=== PATIENT | female | born 1960 | race Asian ===

== ENCOUNTER 2022-01-10 17:04 | Emergency (ER) | payer BC ==
[~2022-01-10] VITALS: Ht 157.5 cm; Wt 46.4 kg
--- NOTE | 2022-01-10 18:07 | PHYS DOC ---
Past History Past Surgical History: No Surgical History General Adult EDM: Chief Complaint: MECHANICAL FALL HPI: HPI: Patient is a 51 year old Urdu female who presents with above hx trip fall FOOSH injury Lt wrist.. Is Urdu and lives in [place] visiting her son who is in [facility]. Pt. is Rt hand dominate. Does have some numbness along lateral side of Lt little finger. Distal neurovascular intact. Pt. denies other injury. Review of Systems: Review of Systems: Constitutional: Denies fever or chills Eyes: Denies change in visual acuity HENT: Denies nasal congestion or sore throat Respiratory: Denies cough or shortness of breath Cardiovascular: Denies chest pain or edema GI: Denies abdominal pain, nausea, vomiting, bloody stools or diarrhea : Denies dysuria Musculoskeletal: Complains of left wrist fracture Integument: Denies rash Neurologic: Denies headache, focal weakness or sensory changes Endocrine: Denies polyuria or polydipsia Lymphatic: Denies swollen glands Psychiatric: Denies depression or anxiety Family History: Family History: Noncontributory to presentation Current Medications: Current Meds: See nursing for home meds Allergies: Allergies: Allergies Coded Allergies Type Severity Reaction Last Updated Verified No Known Drug Allergies 01/10/22 No Physical Exam: PE: Constitutional: Well developed, well nourished, [address] [address] IMAGING REPORT Signed PATIENT: YAMILETH LOMELI EACCOUNT: [id number] : 11/23/1981 LOCATION: ER AGE: 40 SEX: M EXAM STATUS: DEP ER ORD. PHYSICIAN: ERICA MALDONADO MD REASON: post chest tube PROCEDURE: CHEST AP ONLY EXAMINATION: Chest radiograph. VIEWS: 1 COMPARISON: Same day radiograph and CT chest INDICATION:40 years, Male, Post chest tube placement. FINDINGS/ IMPRESSION: Placement of left pleural drain catheter with no definite residual pneumothorax. Improved aeration of the left lung. Subsegmental atelectatic changes in the left lung base. No other significant changes since earlier exam. Electronically signed by: Reggie Melchor MD (01/07/2022 2:01 AM) [facility] [address] [id number] IMAGING REPORT Signed PATIENT: YAMILETH LOMELI ACCOUNT: [id number] : 11/23/1981 LOCATION: ER AGE: 40 SEX: M EXAM STATUS: DEP ER ORD. PHYSICIAN: ERICA MALDONADO MD REASON: post chest tube PROCEDURE: CHEST AP ONLY EXAMINATION: Chest radiograph. VIEWS: 1 COMPARISON: Same day radiograph and CT chest INDICATION:40 years, Male, Post chest tube placement. FINDINGS/ IMPRESSION: Placement of left pleural drain catheter with no definite residual pneumothorax. Improved aeration of the left lung. Subsegmental atelectatic changes in the left lung base. No other significant changes since earlier exam. Electronically signed by: Reggie Melchor MD (01/07/2022 2:01 AM) [facility] DICTATED AND SIGNED BY: REGGIE MELCHOR MD DATE: 01/07/22199 CC: ERICA MALDONADO MD; PCP,NO ~MTH0 0 DICTATED AND SIGNED BY: REGGIE MELCHOR MD DATE: 01/07/22199 CC: ERICA MALDONADO MD; PCP,NO ~MTH0 0 or. [] Cardiovascular:Heart rate regular rhythm, no murmur [] Lungs & Thorax: Bilateral breath sounds clear to auscultation [] Abdomen: Bowel sounds normal, soft, no tenderness, no masses, no pulsatile masses. [] Skin: Warm, dry, no erythema, no rash. [] Back: No tenderness, no CVA tenderness. [] Extremities: No tenderness, no cyanosis, no clubbing, ROM intact, no edema. [Except findings in left wrist as per HPI Neurologic: Alert and oriented X 3, normal motor function, normal sensory function, no focal deficits noted. [] Psychologic: Affect normal, judgement normal, mood normal. [] Current Patient Data: Vital Signs: Vital Signs Date Time Temp Pulse Resp B/P (MAP) Pulse Ox O2 Delivery O2 Flow Rate FiO2 01/10/22 17:53 98.3 62 16 99 Room Air EKG: EKG: [] Radiology/Procedures: Radiology/Procedures: [][address] [address] IMAGING REPORT Signed PATIENT: ALESSIA BUSH ACCOUNT: [id number] : 1960 LOCATION: ER AGE: 61 SEX: F EXAM STATUS: REG ER ORD. PHYSICIAN: ERICA MALDONADO MD REASON: fall PROCEDURE: WRIST 3V LEFT XR LT WRIST 3VIEWS History: Reason: fall / Spl. Instructions: / History: . Pain Technique: 3 views left wrist Comparison: None. Findings: Acute comminuted intra-articular impacted left distal radial fracture with dorsal evaluation. Acute mildly displaced ulnar styloid fracture. Mild first carpal metacarpal triscaphe DJD. Impression: 1. Acute comminuted impacted intra-articular left distal radial fracture. 2. Acute ulnar styloid mildly displaced fracture. Electronically signed by: Shaka Smith DO (01/10/2022 7:06 PM) [facility] DICTATED AND SIGNED BY: SHAKA SMITH DO DATE: 01/10/221904 CC: ERICA MALDONADO MD; NON,STAFF ~MTH0 0 Heart Score: C/O Chest Pain: N/A Risk Factors: Risk Factors: DM, Current or recent (<one month) smoker, HTN, HLP, family history of CAD, obesity. Risk Scores: Score 0 - 3: 2.5% MACE over next 6 weeks - Discharge Home Score 4 - 6: 20.3% MACE over next 6 weeks - Admit for Clinical Observation Score 7 - 10: 72.7% MACE over next 6 weeks - Early Invasive Strategies Course & Med Decision Making: Course & Med Decision Making Pertinent Labs and Imaging studies reviewed. (See chart for details) Patient wear splint. Elevate wrist. Follow-up primary care. Copy of disc given to patient to take to her orthopedist on return to [place]. Take Tylenol and ibuprofen for pain. Ice packs as needed. Distal neuorvascular unchanged after splint. Impression: 1. Trip and fall 2. Comminuted fracture of left radius and styloid fracture left ulna. [] Johanny Disclaimer: Johanny Disclaimer: This electronic medical record was generated, in whole or in part, using a voice recognition dictation system. Departure Departure: Referrals: NON,STAFF (PCP) Johanny Disclaimer This chart was dictated in whole or in part using Voice Recognition software in a busy, high-work load, and often noisy Emergency Department environment. It may contain unintended and wholly unrecognized errors or omissions. Dragon Disclaimer This chart was dictated in whole or in part using Voice Recognition software in a busy, high-work load, and often noisy Emergency Department environment. It m ay contain unintended and wholly unrecognized errors or omissions. ERICA MALDONADO MD Jan 10, 2022 18:07
[2022-01-10] MEDS: oxyCODONE/APAP 5/325 1 TAB TABLET PO ONE (18:30)
--- NOTE | 2022-01-10 19:08 | RAD ---
XR LT WRIST 3VIEWS History: Reason: fall / Spl. Instructions: / History: . Pain Technique: 3 views left wrist Comparison: None. Findings: Acute comminuted intra-articular impacted left distal radial fracture with dorsal evaluation. Acute m ildly displaced ulnar styloid fracture. Mild first carpal metacarpal triscaphe DJD. Impression: 1. Acute comminuted impacted intra-articular left distal radial fracture. 2. Acute ulnar styloid mildly displaced fracture. Electronically signed by: Shaka Smith DO (01/10/2022 7:06 PM) [facility]
== END 2022-01-10 20:11 | disposition home or self-care (01) ==
LOC: ER 17:04
DX: S52.502A Unspecified fracture of the lower end of left radius, initial encounter for closed fracture (principal); S52.612A Displaced fracture of left ulna styloid process, initial encounter for closed fracture; W01.0XXA Fall on same level from slipping, tripping and stumbling without subsequent striking against object, initial encounter; Y93.89 Activity, other specified; Y92.89 Other specified places as the place of occurrence of the external cause; Y99.8 Other external cause status
CPT/HCPCS: 29125; 73110; 99283